=== PATIENT | female | born 1985 ===

== ENCOUNTER → 2023-07-21 08:44 | Outpatient (REF) | payer OTHER, SELFPAY | LOC: HWRAD 08:44 | PROVIDERS: ATTENDING PHYSICIAN Nurse Practitioner Adult Health; FAMILY PHYSICIAN Family Medicine | DX: R10.2 Pelvic and perineal pain (principal); N92.4 Excessive bleeding in the premenopausal period | CPT/HCPCS: 76830; 76856 ==